=== PATIENT | female | born 1975 | race Native Hawaiian/Other Pacific Islander ===

== ENCOUNTER 2022-07-14 04:26 | Emergency (ER) | payer OTHER ==
[~2022-07-14] VITALS: Ht 160 cm; Wt 63.5 kg
[2022-07-14] MEDS ORDERED: NACL 0.9% 1,000 ML IV ONE (04:30)
[2022-07-14] MEDS ORDERED: KETOROLAC 30 MG/ML VIAL IVP ONE (04:30)
[2022-07-14] MEDS ORDERED: ONDANSETRON 4 MG/2 ML VIAL IVP ONE (04:30)
[2022-07-14] MEDS ORDERED: METOCLOPRAMIDE 10 MG TAB PO ONE (04:35)
[2022-07-14] MEDS ORDERED: METOCLOPRAMIDE 10 MG TAB ONE (04:36)
[2022-07-14] MEDS ORDERED: ONDANSETRON 4 MG TAB PO ONE (04:40)
[2022-07-14] MEDS ORDERED: ONDANSETRON 4 MG ODT ONE (04:41)
--- NOTE | 2022-07-14 04:56 | NUR ---
PT MOVED TO BED #5
--- NOTE | 2022-07-14 05:00 | NUR ---
46 Y/O F PRESENTS TO ED WITH C/O ABDOMINAL PAIN WITH N/V/D THAT STARTED APPROXIMATELY x1 HOUR AGO S/P EATING LUNCH. PT REPORTS 7/10 SHARP, CRAMPING PAIN. ABD SOFT AND NON-TENDER. MEDHX- DENIES ALLX- CODEINE
[2022-07-14 06:25] VITALS: BP 128/60
--- NOTE | 2022-07-14 06:25 | NUR ---
PT REPORTS DECREASED PAIN, 5/[address] THOMSON AT BEDSIDE FOR REEVALUATION.
--- NOTE | 2022-07-14 06:54 | NUR ---
PT DISCHARGED AND PROVIDED WITH INSTRUCTIONS BY DR. THOMSON.
== END 2022-07-14 06:55 | disposition home or self-care (01) ==
LOC: MED 04:26
DX: K52.9 Noninfective gastroenteritis and colitis, unspecified (principal); A05.9 Bacterial foodborne intoxication, unspecified; R11.2 Nausea with vomiting, unspecified; Z88.5 Allergy status to narcotic agent; Z98.890 Other specified postprocedural states
CPT/HCPCS: 96361; 96374; 96375; 99284; J1885; J2405; Q0162; J7030; J8597

== ENCOUNTER 2023-04-21 05:42 | Emergency (ER) | payer OTHER ==
[~2023-04-21] VITALS: Ht 162.6 cm; Wt 63.5 kg
[2023-04-21 05:43] VITALS: BP 104/46
[2023-04-21] MEDS ORDERED: KETOROLAC 30 MG/ML VIAL IM ONE (06:00)
[2023-04-21] MEDS ORDERED: diazePAM 5 MG TAB PO ONE (06:00)
[2023-04-21 06:39] LABS: APPEARANCE,URINE CLEAR (CLEAR); BILIRUBIN,URINE NEGATIVE (NEGATIVE); BLOOD, URINE NEGATIVE (NEGATIVE); COLOR,URINE YELLOW (YELLOW); LEUKOCYTE ESTERASE ,URINE 1+ (NEGATIVE); NITRITE, URINE NEGATIVE (NEGATIVE); PH,URINE 6.5 (5.0-9.0); UGLUCOSE NEGATIVE (NEGATIVE)
[2023-04-21 06:44] LABS: RBC,URINE 0-5 /HPF (0-5)
[2023-04-21] MEDS ORDERED: DIAZ5TAB6 PO (06:58)
[2023-04-21] MEDS ORDERED: LID5T TP (06:58)
[2023-04-21] MEDS ORDERED: NAPR-54 PO (06:58)
[2023-04-21] MEDS ORDERED: CEPH-588 PO (06:58)
[2023-04-21 07:11] VITALS: BP 128/74
== END 2023-04-21 07:11 | disposition home or self-care (01) ==
LOC: MED 05:42
DX: N39.0 Urinary tract infection, site not specified (principal); M54.50 Low back pain, unspecified; I25.10 Atherosclerotic heart disease of native coronary artery without angina pectoris; Z88.5 Allergy status to narcotic agent; Z79.899 Other long term (current) drug therapy; Z98.890 Other specified postprocedural states
CPT/HCPCS: 81001; 81025; 87086; 96372; 99283; J1885